=== PATIENT | female | born 1990 | race African-American/Black ===

== ENCOUNTER 2022-04-04 14:01 | Emergency (ER) | payer MEDICAID, OTHER ==
[~2022-04-04] VITALS: Ht 157.5 cm; Wt 59.0 kg
[2022-04-04] MEDS ORDERED: IBUPROFEN 600MG TABLET PO ONE (20:15)
[2022-04-04] MEDS ORDERED: TRAM-529 MT (23:07)
[2022-04-04 23:25] VITALS: BP 118/65
== END 2022-04-04 23:30 | disposition home or self-care (01) ==
LOC: ER 14:01
DX: R07.81 Pleurodynia (principal)
CPT/HCPCS: 36415; 71045; 81025; 85379; 93005; 99285; Z7610

== ENCOUNTER 2022-06-04 11:28 | Emergency (ER) | payer MEDICAID ==
[~2022-06-04] VITALS: Ht 154.9 cm; Wt 60.0 kg
[~2022-06-04 11:28] MED LIST: TRAM-529 MT
[2022-06-04 12:00] VITALS: BP 134/89
== END 2022-06-04 14:10 | disposition home or self-care (01) ==
LOC: ER 12:13
DX: S60.222A Contusion of left hand, initial encounter (principal); X58.XXXA Exposure to other specified factors, initial encounter; Y93.89 Activity, other specified; Y92.89 Other specified places as the place of occurrence of the external cause; Y99.8 Other external cause status
CPT/HCPCS: 73130; 99283

== ENCOUNTER 2022-08-05 19:17 | Emergency (ER) | payer MEDICAID ==
[~2022-08-05] VITALS: Ht 157.5 cm; Wt 60.8 kg
[2022-08-05 19:36] VITALS: BP 124/84
[2022-08-05 21:43] LABS: BASOPHILS % 0.3 % (0.0-2.0); EOSINOPHILS % 1.6 % (0.0-5.0); HEMATOCRIT. 37.7 % (36.0-48.0); HEMOGLOBIN. 12.6 g/dL (12.0-16.0); LYMPHOCYTES % 30.8 % (20.0-50.0); MEAN CORPUSCULAR HEMOGLOBIN 28.9 pg (28.0-32.0); MEAN CORPUSCULAR VOLUME 86.6 fL (81.0-99.0); MEAN PLATELET VOLUME 7.5 fl (7.4-10.4); MONOCYTES % 9.5 % (2.0-8.0); NEUTROPHILS % 57.8 % (40.0-76.0); PLATELET 315 x1000/uL (130-400); RED BLOOD CELL COUNT 4.35 mill/uL (4.2-5.4); RED CELL DISTRIBUTION WIDTH 14.4 % (11.6-14.6)
[2022-08-05 21:51] LABS: CHLORIDE 103 mEq/L (98-107)
[2022-08-05 21:55] LABS: INR 1.1; PROTHROMBIN TIME 11.7 sec (9.6-11.0)
[2022-08-05 22:15] LABS: B-HCG QUANTITATIVE 5007 mIU/mL (<3)
[2022-08-05 22:53] LABS: CLARITY URINE CLOUDY (CLEAR); COLOR URINE DARK YELLOW (YELLOW); KETONES URINE TRACE (NEGATIVE); LEUKOCYTE ESTERASE URINE TRACE (NEGATIVE); NITRITE URINE NEGATIVE (NEGATIVE); OCCULT BLOOD URINE 2+ (NEGATIVE); PROTEIN URINE TRACE (NEGATIVE); SPECIFIC GRAVITY URINE 1.031 (1.005-1.030)
== END 2022-08-05 23:58 | disposition home or self-care (01) ==
LOC: ER 19:43
DX: O03.4 Incomplete spontaneous abortion without complication (principal); Z98.890 Other specified postprocedural states
CPT/HCPCS: 36415; 76830; 76856; 80053; 81003; 84702; 85025; 86850; 86900; 99284